=== PATIENT | male | born 1995 | race Caucasian/White ===

== ENCOUNTER 2018-05-27 20:55 | Emergency (ER) | payer BC ==
[~2018-05-27] VITALS: Ht 180.3 cm; Wt 100.0 kg
[2018-05-28 00:40] VITALS: BP 125/55
== END 2018-05-28 00:41 | disposition home or self-care (01) ==
LOC: ER 20:55
DX: B86 Scabies (principal); M54.5 Low back pain; F17.210 Nicotine dependence, cigarettes, uncomplicated; F12.10 Cannabis abuse, uncomplicated
CPT/HCPCS: 99283